=== PATIENT | male | born 1985 | race Hispanic/Latino ===

== ENCOUNTER 2017-11-16 15:50 | Emergency (ER) | payer OTHER, SELFPAY ==
--- NOTE | 2017-11-16 19:28 | RAD ---
TWO VIEWS CHEST: 11/16/17 HISTORY: Cough. PA and lateral views of the chest is obtained on 11/16/17. Comparison made with previous exam from 05/01/16. Two views chest demonstrate the lungs to be well aerated. No evidence of active intrathoracic disease seen. No evidence of effusions, pneumonia, or pneumothorax seen. IMPRESSION: Normal two views chest. POS: [facility]
== END 2017-11-16 16:45 | disposition home or self-care (01) ==
LOC: ERS 15:50
DX: J40 Bronchitis, not specified as acute or chronic (principal)
CPT/HCPCS: 71046; 94640; J7620

== ENCOUNTER 2017-11-24 23:22 | Emergency (ER) | payer SELFPAY ==
--- NOTE | 2017-11-25 07:30 | RAD ---
RADIOGRAPH CHEST 2 VIEWS: HISTORY: 31-year-old male with cough. FINDINGS: There is no air space density, pulmonary edema, pleural effusion, pneumothorax, or cardiomegaly. IMPRESSION: No acute cardiopulmonary findings. jn [] POS: [facility]
== END 2017-11-25 00:21 | disposition home or self-care (01) ==
LOC: ERS 23:22
DX: J20.9 Acute bronchitis, unspecified (principal); Z79.899 Other long term (current) drug therapy
CPT/HCPCS: 71046

== ENCOUNTER 2018-03-27 06:37 | Emergency (ER) | payer BC, SELFPAY | END 2018-03-27 07:25 | disposition home or self-care (01) | LOC: ERS 06:37 | DX: J06.9 Acute upper respiratory infection, unspecified (principal) | CPT/HCPCS: 87804; 99283 ==

== ENCOUNTER 2018-06-13 12:32 | Emergency (ER) | payer BC ==
--- NOTE | 2018-06-13 13:25 | RAD ---
PA AND LATERAL VIEWS CHEST: Date: 06/13/18 HISTORY: Cough, congestion, and body aches. FINDINGS: Comparison made with exam of 11/24/17. The heart size is normal. The lungs are expanded without focal areas of consolidation, pneumothoraces , or pleural effusions. There are degenerative changes in the spine. IMPRESSION: No radiographic evidence of acute cardiopulmonary process. POS: [facility]
== END 2018-06-13 14:30 | disposition home or self-care (01) ==
LOC: ERS 12:32
DX: R05 Cough (principal)
CPT/HCPCS: 71046; 87804

== ENCOUNTER 2018-07-07 07:11 | Outpatient (CLI) | payer BC ==
--- NOTE | 2018-07-07 08:08 | ULT ---
Sonogram abdomen complete HISTORY: Abdominal pain. Abnormal liver function tests. FINDINGS: Gallbladder has a normal appearance without evidence of stones. Common duct is 0.4 cm. Live r is diffusely echogenic without focal mass or intrahepatic biliary dilatation. No free fluid. The spleen, kidneys, and visualized portions of abdominal aorta and IVC have a normal appearance. Pancrea s is mostly obscured. IMPRESSION: No evidence of gallstones or biliary obstruction. Hepatic steatosis.
== END 2018-07-07 07:12 | disposition home or self-care (01) ==
LOC: SCSULT 07:11
PROVIDERS: ATTEND Family Medicine
DX: R79.89 Other specified abnormal findings of blood chemistry (principal); K76.0 Fatty (change of) liver, not elsewhere classified
CPT/HCPCS: 76700

== ENCOUNTER 2018-11-15 19:45 | Emergency (ER) | payer BC, SELFPAY ==
[2018-11-15] MEDS ORDERED: Ketorolac Tromethamine 30 MG/ML VIAL ONE (20:01)
--- NOTE | 2018-11-15 20:42 | RAD ---
EXAM: 3 views of the left shoulder HISTORY: Shoulder pain COMPARISON: None FINDINGS: There is no evidence of acute fracture or dislocation. No degenerative changes are present. No soft tissue swelling is seen. The visualized thorax is unremarkable. IMPRESSION: No evidence of acute osseous abnormality.
== END 2018-11-15 21:00 | disposition home or self-care (01) ==
LOC: ERS 19:45
DX: S43.422A Sprain of left rotator cuff capsule, initial encounter (principal); X58.XXXA Exposure to other specified factors, initial encounter
CPT/HCPCS: 96372; J1885

== ENCOUNTER 2020-06-06 12:43 | Emergency (ER) | payer SELFPAY ==
[2020-06-06] MEDS ORDERED: Ketorolac Tromethamine 30 MG/ML VIAL ONE (13:51)
== END 2020-06-06 14:14 | disposition home or self-care (01) ==
LOC: ERS 12:43
DX: S13.9XXA Sprain of joints and ligaments of unspecified parts of neck, initial encounter (principal); M75.52 Bursitis of left shoulder; W11.XXXA Fall on and from ladder, initial encounter
CPT/HCPCS: 96372; J1885

== ENCOUNTER 2020-06-25 22:15 | Emergency (ER) | payer SELFPAY | END 2020-06-25 23:30 | disposition home or self-care (01) | LOC: ERS 22:15 | DX: R55 Syncope and collapse (principal); G47.33 Obstructive sleep apnea (adult) (pediatric) | CPT/HCPCS: 71045; 93005 ==

== ENCOUNTER 2020-12-13 11:39 | Emergency (ER) | payer OTHER, SELFPAY ==
[2020-12-13 12:13] LABS: #Eosinphils 0.3 thou/uL (0.0-0.7); #Lymphocytes 2.2 thou/uL (1.20-3.40); #Monocytes 0.9 thou/uL (0.11-0.59); #Neutrophils 6.4 thou/uL (1.40-6.50); %Basophils 0.4 % (0.0-1.0); %Eosinophils 3.2 % (0.0-10.0); %Lymphocytes 22.5 % (21.0-51.0); %Monocytes 8.7 % (0.0-10.0); %Neutrophils 65.2 % (42.0-75.0); Mean Corpuscular HGB CONC 33.7 g/dL (32.0-36.0); Mean Corpuscular Hemoglobin 29.8 pg (27.0-31.0); Mean Corpuscular Volume 88.4 fL (78.0-98.0); Mean Platelet Volume 6.8 fL (7.4-10.4); Platelet Count 338 thou/uL (130-400); RBC Distribution Width 11.7 % (11.5-14.5); Red Blood Cell (RBC) Count 5.35 mill/uL (4.70-6.10); White Blood Cell (WBC) Count 9.9 thou/uL (4.8-10.8)
[2020-12-13 12:16] LABS: Bacteria/HPF None Seen HPF (None Seen); Bilirubin Negative (Negative); Blood, Urine 2+ (Negative); Clarity Clear (Clear); Glucose, Urine (Dipstick) Normal (Negative); Ketone, Urine Negative (Negative); Leukocyte Negative Leu/uL (Negative); Nitrite Negative (Negative); Protein, Urine (Dipstick) 30 mg/dL (Neg-Trace); RBC/HPF 0-3 HPF (0-3); Specific Gravity, Urine 1.021 (1.002-1.036); Squamous Epithelial 0-3 HPF (0-3); Urobilinogen Normal mg/dL (Less than 2); pH, Urine 5.5 (5.0-9.0)
[2020-12-13] MEDS ORDERED: Mag-Al 1200 mg/1200 mg/30 ML UDCUP ONE (12:24)
[2020-12-13 12:35] LABS: ALT (SGPT) 88 U/L (8-55); AST (SGOT) 40 U/L (5-34); Albumin 4.4 g/dL (3.5-5.0); Alkaline Phosphatase 78 U/L (40-110); Anion Gap 15 mmol/L (10-20); BUN (Urea Nitrogen) 15 mg/dL (8.9-20.6); Bilirubin, Total 0.6 mg/dL (0.2-1.2); Calc. Creatinine Clearance 0 mL/min (70-130); Calcium 10.1 mg/dL (7.8-10.44); Carbon Dioxide 28 mmol/L (22-29); Chloride 100 mmol/L (98-107); Globulin 3.8 g/dL (2.4-3.5); Glucose 111 mg/dL (70-105); Lipase 46 U/L (8-78); Potassium 4.1 mmol/L (3.5-5.1); Protein, Total 8.2 g/dL (6.0-8.3); Sodium 139 mmol/L (136-145)
[2020-12-13] MEDS ORDERED: Ketorolac Tromethamine 30 MG/ML VIAL ONE (14:03)
== END 2020-12-13 14:10 | disposition home or self-care (01) ==
LOC: ERS 11:39
DX: R10.13 Epigastric pain (principal)
CPT/HCPCS: 76705; 80053; 81003; 81015; 83690; 85025; 96374; J1885